=== PATIENT | male | born 1970 | race African-American/Black ===

== ENCOUNTER 2020-12-09 18:56 | Observation (INO) ==
[2020-12-09 20:14] LABS: Basophils # 0.1 10*3/uL (0.0-0.2); Basophils % 1.5 % (0.0-0.8); Eosinophils # 0.3 10*3/uL (0.0-0.87); Eosinophils % 8.4 % (0.00-10.9); Hematocrit 31.9 VOL% (42.0-52.0); Hemoglobin 9.8 GM/DL (14.0-18.0); Lymphocytes # 0.8 10*3/uL (1.4-4.0); Lymphocytes % 21.5 % (21.2-54.2); Mean Corpuscular HGB Conc 30.7 GM/DL (32-36); Mean Corpuscular Volume 94.7 FL (87-102); Mean Platelet Volume 12.1 FL (9.6-12.0); Monocytes % 10.5 % (1.7-12.7); Neutrophils % 58.1 % (38.7-73.9); Platelet Count 128 T/CUMM (130-400); Red Blood Count 3.37 MC/CUMM (3.8-5.5); Red Cell Distribution Width 17.2 % (9.3-17.3); White Blood Count 3.9 T/CUMM (4-12)
[2020-12-09 20:27] LABS: INR 1.2; Partial Thromboplastin Time 30.8 SECS (23.9-33.8)
[2020-12-09] MEDS ORDERED: LIDOCAINE 1%/EPI INJ 20 ML VIAL INFILTRAT STA (20:27)
[2020-12-09 20:34] LABS: Calcium 8.6 MG/DL (8.5-10.1); Osmolality,Calculated 286.3 MOS/KG (273-304); Potassium 3.4 MMOL/L (3.5-5.1)
[2020-12-09] MEDS ORDERED: ONDANSETRON 4 MG/2 ML VIAL IV PRN (21:44)
[2020-12-09] MEDS ORDERED: ACETAMINOPHEN 325 MG TABLET PO PRN (21:44)
[2020-12-10 00:05] LABS: Basophils # 0.1 10*3/uL (0.0-0.2); Basophils % 1.6 % (0.0-0.8); Eosinophils # 0.4 10*3/uL (0.0-0.87); Eosinophils % 8.2 % (0.00-10.9); Hematocrit 32.2 VOL% (42.0-52.0); Hemoglobin 9.8 GM/DL (14.0-18.0); Immature Granulocytes % 0.2 %; Immature Granulocytes Absolute 0.01 #; Lymphocytes % 22.4 % (21.2-54.2); Mean Corpuscular HGB Conc 30.4 GM/DL (32-36); Mean Corpuscular Volume 94.7 FL (87-102); Mean Platelet Volume 11.4 FL (9.6-12.0); Neutrophils % 57.6 % (38.7-73.9); Platelet Count 127 T/CUMM (130-400); Red Cell Distribution Width 17.2 % (9.3-17.3); White Blood Count 4.3 T/CUMM (4-12)
[2020-12-10 05:12] LABS: Hypochromasia 1+; Microcytosis 1+; Ovalocytes Slight; Platelet Estimate Adequate; Target Cells Slight
[2020-12-10 05:36] LABS: Basophils # 0.1 10*3/uL (0.0-0.2); Basophils % 1.3 % (0.0-0.8); Eosinophils # 0.4 10*3/uL (0.0-0.87); Eosinophils % 9.2 % (0.00-10.9); Hematocrit 30.2 VOL% (42.0-52.0); Hemoglobin 9.6 GM/DL (14.0-18.0); Immature Granulocytes % 0.3 %; Immature Granulocytes Absolute 0.01 #; Lymphocytes % 24.5 % (21.2-54.2); Mean Corpuscular HGB Conc 31.8 GM/DL (32-36); Mean Corpuscular Volume 92.4 FL (87-102); Mean Platelet Volume 11.5 FL (9.6-12.0); Monocytes % 10.7 % (1.7-12.7); Platelet Count 145 T/CUMM (130-400); Red Blood Count 3.27 MC/CUMM (3.8-5.5); White Blood Count 3.9 T/CUMM (4-12)
[2020-12-10 06:11] LABS: Calcium 8.8 MG/DL (8.5-10.1); Osmolality,Calculated 283.4 MOS/KG (273-304); Potassium 3.5 MMOL/L (3.5-5.1)
[2020-12-10] MEDS ORDERED: CLINDAMYCIN INJ 900 MG in PREMIX 1 EACH IV ONE (07:32)
[2020-12-10] MEDS ORDERED: fentaNYL 100 MCG/2 ML VIAL ONE (07:50)
[2020-12-10] MEDS ORDERED: MIDAZOLAM 2 MG/2 ML VIAL ONE (07:51)
[2020-12-10] MEDS ORDERED: SEVOFLURANE 1 UNIT/15 MINUTE INH ONE ×4 (07:55→09:26)
[2020-12-10] MEDS ORDERED: propofoL 200 MG/20 ML VIAL IV ONE (07:55)
[2020-12-10] MEDS ORDERED: LIDOCAINE 2% 5 ML VIAL ONE (07:55)
[2020-12-10] MEDS ORDERED: LIDOCAINE 1%/EPI INJ 20 ML VIAL ONE (08:05)
[2020-12-10] MEDS ORDERED: HEPARIN 5,000 UNIT/1 ML VIAL ONE (08:05)
[2020-12-10] MEDS ORDERED: BUPIVACAINE MPF 0.25% 30 ML VIAL ONE (08:05)
[2020-12-10] MEDS ORDERED: SODIUM CHLORIDE 0.9% 250 ML IV SCH (08:30)
[2020-12-10] MEDS ORDERED: PHENYLEPHRINE 1 MG/10 ML SYRINGE IV ONE (08:55)
[2020-12-10] MEDS ORDERED: ONDANSETRON 4 MG/2 ML VIAL ONE (09:10)
[2020-12-10] MEDS ORDERED: PHENYLEPHRINE DRIP 20 MG/250 ML PREMIX IV ONE (09:34)
[2020-12-10 15:42] VITALS: BP 151/85
== END 2020-12-10 17:35 | disposition home or self-care (01) ==
LOC: EDUNIT# → EDBD → N.ED 18:56 → N.EDINP 18:56 → N.3E 23:24
PROVIDERS: ADMIT Surgery; ATTEND Surgery

== ENCOUNTER 2021-02-10 15:08 | Inpatient (IN) ==
[2021-02-10 17:33] LABS: Basophils # 0.1 10*3/uL (0.0-0.2); Basophils % 0.8 % (0.0-0.8); Eosinophils # 0.2 10*3/uL (0.0-0.87); Eosinophils % 2.9 % (0.00-10.9); Hematocrit 20.9 VOL% (42.0-52.0); Immature Granulocytes % 0.3 %; Immature Granulocytes Absolute 0.02 #; Lymphocytes # 1.1 10*3/uL (1.4-4.0); Lymphocytes % 17.2 % (21.2-54.2); Mean Corpuscular HGB Conc 30.1 GM/DL (32-36); Mean Corpuscular Volume 82.9 FL (87-102); Mean Platelet Volume 11.3 FL (9.6-12.0); Neutrophils % 70.8 % (38.7-73.9); Platelet Count 238 T/CUMM (130-400); Red Blood Count 2.52 MC/CUMM (3.8-5.5); Red Cell Distribution Width 18.4 % (9.3-17.3); White Blood Count 6.2 T/CUMM (4-12)
[2021-02-10 17:35] LABS: Hemoglobin 6.3 GM/DL (14.0-18.0)
[2021-02-10 17:50] LABS: Alanine Aminotransferase < 6 U/L (16-61); Albumin 1.6 G/DL (3.4-5.0); Alkaline Phosphatase 40 U/L (45-117); Aspartate Amino Transferase 8 U/L (0-37); Blood Urea Nitrogen 20 MG/DL (7-18); Carbon Dioxide 29 MMOL/L (21-32); Estimated Glom Filtration Rate 21 ML/MIN; Glucose 86 MG/DL (74-106); Potassium 3.2 MMOL/L (3.5-5.1); Sodium 136 MMOL/L (136-145); Total Protein 8.9 G/DL (6.4-8.2)
[2021-02-10] MEDS ORDERED: hydrALAZINE 20 MG/1 ML VIAL IV PRN (20:57)
[2021-02-10] MEDS ORDERED: GLUCAGON 1 MG VIAL IM PRN (20:57)
[2021-02-10] MEDS ORDERED: MORPHINE 4 MG/1 ML VIAL IV PRN (20:57)
[2021-02-10] MEDS ORDERED: DEXTROSE 50% 25 GM/50 ML VIAL IV PRN (20:57)
[2021-02-10] MEDS ORDERED: ONDANSETRON 4 MG/2 ML VIAL IV PRN (20:57)
[2021-02-10] MEDS ORDERED: cefTRIAXone 1,000 MG VIAL IM ONE (21:01)
[2021-02-10] MEDS ORDERED: SODIUM CHLORIDE 0.9% 1,000 ML IV PRN (21:15)
[2021-02-10 22:51] LABS: HIV Antigen/Antibody Result Nonreactive (Nonreactive); Hepatitis B Core IgM Quant 0.07 Index; Hepatitis B Surface Ag Quant < 0.10 Index; Hepatitis B Surface Ag Result Non-Reactive (NonReactive); Hepatitis C Virus Ab Quant 0.16 Index; Hepatitis C Virus Ab Result Non-Reactive (NonReactive)
[2021-02-10] MEDS: INSULIN REGULAR 100 UNIT/ML SUBCUT SCH (23:18)
[2021-02-10] MEDS: DOXYCYCLINE HYCLATE INJ 100 MG in SODIUM CHLORIDE 0.9% 100 ML IV SCH (23:19)
[2021-02-11 04:18] LABS: Basophils # 0.1 10*3/uL (0.0-0.2); Eosinophils # 0.2 10*3/uL (0.0-0.87); Eosinophils % 3.8 % (0.00-10.9); Hematocrit 18.8 VOL% (42.0-52.0); Immature Granulocytes % 0.5 %; Immature Granulocytes Absolute 0.03 #; Lymphocytes # 1.4 10*3/uL (1.4-4.0); Lymphocytes % 22.5 % (21.2-54.2); Mean Corpuscular HGB Conc 29.3 GM/DL (32-36); Mean Corpuscular Volume 84.3 FL (87-102); Mean Platelet Volume 10.1 FL (9.6-12.0); Monocytes % 7.8 % (1.7-12.7); Neutrophils % 64.4 % (38.7-73.9); Platelet Count 322 T/CUMM (130-400); Red Blood Count 2.23 MC/CUMM (3.8-5.5); Red Cell Distribution Width 18.4 % (9.3-17.3); White Blood Count 6.3 T/CUMM (4-12)
[2021-02-11 04:20] LABS: Hemoglobin 5.5 GM/DL (14.0-18.0)
[2021-02-11 04:40] LABS: Alanine Aminotransferase < 6 U/L (16-61); Albumin 1.6 G/DL (3.4-5.0); Alkaline Phosphatase 40 U/L (45-117); Aspartate Amino Transferase 7 U/L (0-37); Blood Urea Nitrogen 21 MG/DL (7-18); Calcium 8.2 MG/DL (8.5-10.1); Carbon Dioxide 30 MMOL/L (21-32); Estimated Glom Filtration Rate 20 ML/MIN; Glucose 75 MG/DL (74-106); Osmolality,Calculated 271.1 MOS/KG (273-304); Potassium 3.1 MMOL/L (3.5-5.1); Sodium 135 MMOL/L (136-145)
[2021-02-11] MEDS: INSULIN REGULAR 100 UNIT/ML SUBCUT SCH ×4 (09:58→21:28)
[2021-02-11] MEDS: POTASSIUM CHLORIDE 8 MEQ CAPSULE PO SCH (10:00)
[2021-02-11] MEDS ORDERED: VANCOMYCIN INJ 1,000 MG in SODIUM CHLORIDE 0.9% 250 ML IV SCH (12:00)
[2021-02-11] MEDS ORDERED: VANCOMYCIN INJ 750 MG in SODIUM CHLORIDE 0.9% 250 ML IV PRN (12:20)
[2021-02-11] MEDS ORDERED: DEXTROSE 50% 25 GM/50 ML VIAL IV PRN (12:31)
[2021-02-11] MEDS ORDERED: GLUCAGON 1 MG VIAL IM PRN (12:31)
[2021-02-11] MEDS ORDERED: VANCOMYCIN INJ 2,500 MG in SODIUM CHLORIDE 0.9% 500 ML IV ONE (18:00)
[2021-02-11] MEDS: cefTRIAXone 1,000 MG in SODIUM CHLORIDE 0.9% 100 ML IV SCH (21:34)
[2021-02-11] MEDS: DOXYCYCLINE HYCLATE INJ 100 MG in SODIUM CHLORIDE 0.9% 100 ML IV SCH (22:39)
[2021-02-12 06:24] LABS: Alanine Aminotransferase < 6 U/L (16-61); Albumin 1.5 G/DL (3.4-5.0); Alkaline Phosphatase 53 U/L (45-117); Aspartate Amino Transferase 9 U/L (0-37); Blood Urea Nitrogen 21 MG/DL (7-18); Calcium 7.9 MG/DL (8.5-10.1); Carbon Dioxide 23 MMOL/L (21-32); Estimated Glom Filtration Rate 22 ML/MIN; Glucose 103 MG/DL (74-106); Osmolality,Calculated 270.2 MOS/KG (273-304); Potassium 3.6 MMOL/L (3.5-5.1); Sodium 134 MMOL/L (136-145); Total Protein 8.6 G/DL (6.4-8.2)
[2021-02-12 07:15] LABS: Basophils # 0.1 10*3/uL (0.0-0.2); Eosinophils # 0.2 10*3/uL (0.0-0.87); Eosinophils % 2.7 % (0.00-10.9); Hematocrit 28.3 VOL% (42.0-52.0); Hemoglobin 8.5 GM/DL (14.0-18.0); Immature Granulocytes % 0.6 %; Immature Granulocytes Absolute 0.04 #; Lymphocytes # 1.1 10*3/uL (1.4-4.0); Lymphocytes % 16.9 % (21.2-54.2); Mean Corpuscular Volume 87.6 FL (87-102); Mean Platelet Volume 11.2 FL (9.6-12.0); Monocytes % 8.2 % (1.7-12.7); Neutrophils % 70.6 % (38.7-73.9); Platelet Count 237 T/CUMM (130-400); Red Blood Count 3.23 MC/CUMM (3.8-5.5); Red Cell Distribution Width 17.8 % (9.3-17.3); White Blood Count 6.2 T/CUMM (4-12)
[2021-02-12] MEDS: INSULIN REGULAR 100 UNIT/ML SUBCUT SCH ×4 (09:07→20:09)
[2021-02-12] MEDS: POTASSIUM CHLORIDE 8 MEQ CAPSULE PO SCH (10:32)
[2021-02-12] MEDS: DOXYCYCLINE HYCLATE INJ 100 MG in SODIUM CHLORIDE 0.9% 100 ML IV SCH ×2 (12:04→21:42)
[2021-02-12] MEDS: cefTRIAXone 1,000 MG in SODIUM CHLORIDE 0.9% 100 ML IV SCH (20:57)
[2021-02-13 05:38] LABS: Basophils # 0.1 10*3/uL (0.0-0.2); Basophils % 0.8 % (0.0-0.8); Eosinophils # 0.4 10*3/uL (0.0-0.87); Eosinophils % 4.9 % (0.00-10.9); Hematocrit 22.6 VOL% (42.0-52.0); Immature Granulocytes % 0.4 %; Immature Granulocytes Absolute 0.03 #; Lymphocytes # 1.3 10*3/uL (1.4-4.0); Lymphocytes % 18.9 % (21.2-54.2); Mean Corpuscular Volume 83.1 FL (87-102); Mean Platelet Volume 10.2 FL (9.6-12.0); Monocytes % 8.3 % (1.7-12.7); Neutrophils % 66.7 % (38.7-73.9); Platelet Count 298 T/CUMM (130-400); Red Blood Count 2.72 MC/CUMM (3.8-5.5); Red Cell Distribution Width 17.6 % (9.3-17.3); White Blood Count 7.1 T/CUMM (4-12)
[2021-02-13 05:58] LABS: Alanine Aminotransferase < 6 U/L (16-61); Albumin 1.5 G/DL (3.4-5.0); Alkaline Phosphatase 42 U/L (45-117); Aspartate Amino Transferase 4 U/L (0-37); Blood Urea Nitrogen 26 MG/DL (7-18); Calcium 7.9 MG/DL (8.5-10.1); Carbon Dioxide 28 MMOL/L (21-32); Estimated Glom Filtration Rate 17 ML/MIN; Glucose 108 MG/DL (74-106); Osmolality,Calculated 278.8 MOS/KG (273-304); Potassium 2.9 MMOL/L (3.5-5.1); Sodium 137 MMOL/L (136-145); Total Protein 8.3 G/DL (6.4-8.2)
[2021-02-13] MEDS: INSULIN REGULAR 100 UNIT/ML SUBCUT SCH ×4 (08:02→21:36)
[2021-02-13] MEDS: DOXYCYCLINE HYCLATE INJ 100 MG in SODIUM CHLORIDE 0.9% 100 ML IV SCH ×2 (08:59→21:37)
[2021-02-13] MEDS: POTASSIUM CHLORIDE 8 MEQ CAPSULE PO SCH (08:59)
[2021-02-13] MEDS ORDERED: MORPHINE 4 MG/1 ML VIAL IV PRN (11:25)
[2021-02-13] MEDS ORDERED: LIDOCAINE/PRILOCAINE CREAM 5 GM TUBE TOP PRN (19:01)
[2021-02-13] MEDS: cefTRIAXone 1,000 MG in SODIUM CHLORIDE 0.9% 100 ML IV SCH (20:56)
[2021-02-14] MEDS: DOXYCYCLINE HYCLATE INJ 100 MG in SODIUM CHLORIDE 0.9% 100 ML IV SCH ×2 (08:29→21:49)
[2021-02-14] MEDS: INSULIN REGULAR 100 UNIT/ML SUBCUT SCH ×4 (08:32→21:07)
[2021-02-14] MEDS: POTASSIUM CHLORIDE 8 MEQ CAPSULE PO SCH (08:32)
[2021-02-14 08:38] LABS: Basophils # 0.1 10*3/uL (0.0-0.2); Basophils % 0.8 % (0.0-0.8); Eosinophils # 0.4 10*3/uL (0.0-0.87); Eosinophils % 5.6 % (0.00-10.9); Hematocrit 21.4 VOL% (42.0-52.0); Hemoglobin 6.6 GM/DL (14.0-18.0); Immature Granulocytes % 0.5 %; Immature Granulocytes Absolute 0.03 #; Lymphocytes # 1.4 10*3/uL (1.4-4.0); Lymphocytes % 20.6 % (21.2-54.2); Mean Corpuscular HGB Conc 30.8 GM/DL (32-36); Mean Corpuscular Volume 84.6 FL (87-102); Mean Platelet Volume 9.6 FL (9.6-12.0); Monocytes % 7.7 % (1.7-12.7); Neutrophils % 64.8 % (38.7-73.9); Platelet Count 282 T/CUMM (130-400); Red Blood Count 2.53 MC/CUMM (3.8-5.5); Red Cell Distribution Width 17.8 % (9.3-17.3); White Blood Count 6.7 T/CUMM (4-12)
[2021-02-14 08:48] LABS: INR 1.3
[2021-02-14 08:59] LABS: Calcium 7.9 MG/DL (8.5-10.1); Osmolality,Calculated 278.8 MOS/KG (273-304); Potassium 3.1 MMOL/L (3.5-5.1)
[2021-02-14] MEDS ORDERED: DIAZEPAM 5 MG TABLET PO ONE (13:56)
[2021-02-14] MEDS ORDERED: SODIUM CHLORIDE 0.45% 1,000 ML IV SCH (14:00)
[2021-02-14] MEDS: PANTOPRAZOLE 40 MG TABLET PO SCH (14:27)
[2021-02-14] MEDS ORDERED: VANCOMYCIN INJ 750 MG in SODIUM CHLORIDE 0.9% 250 ML IV ONE (17:00)
[2021-02-14] MEDS: cefTRIAXone 1,000 MG in SODIUM CHLORIDE 0.9% 100 ML IV SCH (21:16)
[2021-02-15 05:26] LABS: Basophils # 0.1 10*3/uL (0.0-0.2); Basophils % 0.9 % (0.0-0.8); Eosinophils # 0.4 10*3/uL (0.0-0.87); Eosinophils % 5.7 % (0.00-10.9); Hematocrit 26.2 VOL% (42.0-52.0); Hemoglobin 8.4 GM/DL (14.0-18.0); Immature Granulocytes % 0.5 %; Immature Granulocytes Absolute 0.03 #; Lymphocytes # 1.2 10*3/uL (1.4-4.0); Lymphocytes % 18.3 % (21.2-54.2); Mean Corpuscular HGB Conc 32.1 GM/DL (32-36); Mean Corpuscular Volume 84.2 FL (87-102); Mean Platelet Volume 10.3 FL (9.6-12.0); Monocytes % 8.1 % (1.7-12.7); Neutrophils % 66.5 % (38.7-73.9); Platelet Count 250 T/CUMM (130-400); Red Blood Count 3.11 MC/CUMM (3.8-5.5); Red Cell Distribution Width 17.2 % (9.3-17.3); White Blood Count 6.7 T/CUMM (4-12)
[2021-02-15 05:52] LABS: Osmolality,Calculated 281.7 MOS/KG (273-304); Potassium 3.1 MMOL/L (3.5-5.1)
[2021-02-15] MEDS: INSULIN REGULAR 100 UNIT/ML SUBCUT SCH ×4 (07:28→21:46)
[2021-02-15] MEDS: carvediloL 25 MG TABLET PO SCH ×2 (08:25→21:50)
[2021-02-15] MEDS: POTASSIUM CHLORIDE RIDER 10 MEQ/100 ML PREMIX IV SCH ×3 (08:25→10:22)
[2021-02-15] MEDS: SODIUM CHLORIDE 0.9% 1,000 ML IV SCH (08:25)
[2021-02-15] MEDS: POTASSIUM CHLORIDE 8 MEQ CAPSULE PO SCH (08:35)
[2021-02-15] MEDS: PANTOPRAZOLE 40 MG TABLET PO SCH (08:35)
[2021-02-15] MEDS: DOXYCYCLINE HYCLATE INJ 100 MG in SODIUM CHLORIDE 0.9% 100 ML IV SCH (11:22)
[2021-02-15] MEDS ORDERED: LIDOCAINE 2% 5 ML VIAL ONE (14:50)
[2021-02-15] MEDS ORDERED: propofoL 200 MG/20 ML VIAL IV ONE (14:50)
[2021-02-15] MEDS: cefTRIAXone 1,000 MG in SODIUM CHLORIDE 0.9% 100 ML IV SCH (21:55)
[2021-02-16 05:34] LABS: Basophils # 0.1 10*3/uL (0.0-0.2); Basophils % 1.3 % (0.0-0.8); Eosinophils # 0.3 10*3/uL (0.0-0.87); Eosinophils % 6.2 % (0.00-10.9); Hematocrit 24.2 VOL% (42.0-52.0); Hemoglobin 7.7 GM/DL (14.0-18.0); Immature Granulocytes % 0.4 %; Immature Granulocytes Absolute 0.02 #; Lymphocytes # 1.1 10*3/uL (1.4-4.0); Lymphocytes % 20.5 % (21.2-54.2); Mean Corpuscular HGB Conc 31.8 GM/DL (32-36); Mean Corpuscular Volume 84.6 FL (87-102); Mean Platelet Volume 9.5 FL (9.6-12.0); Monocytes % 7.9 % (1.7-12.7); Neutrophils % 63.7 % (38.7-73.9); Platelet Count 230 T/CUMM (130-400); Red Blood Count 2.86 MC/CUMM (3.8-5.5); Red Cell Distribution Width 17.6 % (9.3-17.3); White Blood Count 5.3 T/CUMM (4-12)
[2021-02-16 05:56] LABS: Alanine Aminotransferase < 6 U/L (16-61); Albumin 1.5 G/DL (3.4-5.0); Alkaline Phosphatase 45 U/L (45-117); Aspartate Amino Transferase 6 U/L (0-37); Blood Urea Nitrogen 32 MG/DL (7-18); Calcium 8.1 MG/DL (8.5-10.1); Carbon Dioxide 26 MMOL/L (21-32); Estimated Glom Filtration Rate 14 ML/MIN; Glucose 104 MG/DL (74-106); Osmolality,Calculated 279.8 MOS/KG (273-304); Potassium 3.3 MMOL/L (3.5-5.1); Sodium 137 MMOL/L (136-145)
[2021-02-16] MEDS: INSULIN REGULAR 100 UNIT/ML SUBCUT SCH ×4 (08:25→21:40)
[2021-02-16] MEDS: carvediloL 25 MG TABLET PO SCH ×2 (09:16→21:40)
[2021-02-16] MEDS: PANTOPRAZOLE 40 MG TABLET PO SCH (09:16)
[2021-02-16] MEDS: POTASSIUM CHLORIDE 8 MEQ CAPSULE PO SCH (09:16)
[2021-02-16] MEDS: SODIUM CHLORIDE 0.9% 1,000 ML IV SCH (12:40)
[2021-02-16] MEDS ORDERED: VANCOMYCIN INJ 750 MG in SODIUM CHLORIDE 0.9% 250 ML IV ONE (17:00)
[2021-02-16] MEDS: cefTRIAXone 1,000 MG in SODIUM CHLORIDE 0.9% 100 ML IV SCH (21:40)
[2021-02-17 05:32] LABS: Basophils # 0.1 10*3/uL (0.0-0.2); Eosinophils # 0.3 10*3/uL (0.0-0.87); Eosinophils % 5.7 % (0.00-10.9); Hematocrit 25.2 VOL% (42.0-52.0); Immature Granulocytes % 0.5 %; Immature Granulocytes Absolute 0.03 #; Lymphocytes # 1.3 10*3/uL (1.4-4.0); Lymphocytes % 22.7 % (21.2-54.2); Mean Corpuscular HGB Conc 31.7 GM/DL (32-36); Mean Corpuscular Volume 86.6 FL (87-102); Mean Platelet Volume 10.9 FL (9.6-12.0); Monocytes % 8.8 % (1.7-12.7); Neutrophils % 61.3 % (38.7-73.9); Platelet Count 234 T/CUMM (130-400); Red Blood Count 2.91 MC/CUMM (3.8-5.5); Red Cell Distribution Width 18.1 % (9.3-17.3); White Blood Count 5.8 T/CUMM (4-12)
[2021-02-17 05:43] LABS: Osmolality,Calculated 277.8 MOS/KG (273-304); Potassium 3.6 MMOL/L (3.5-5.1)
[2021-02-17] MEDS: POTASSIUM CHLORIDE 8 MEQ CAPSULE PO SCH (09:29)
[2021-02-17] MEDS: PANTOPRAZOLE 40 MG TABLET PO SCH (09:29)
[2021-02-17] MEDS: carvediloL 25 MG TABLET PO SCH ×2 (09:29→21:33)
[2021-02-17] MEDS: SODIUM CHLORIDE 0.9% 1,000 ML IV SCH (10:23)
[2021-02-17] MEDS: INSULIN REGULAR 100 UNIT/ML SUBCUT SCH ×4 (10:23→20:31)
[2021-02-17] MEDS: cefTRIAXone 1,000 MG in SODIUM CHLORIDE 0.9% 100 ML IV SCH (21:34)
[2021-02-18 06:30] LABS: Calcium 8.1 MG/DL (8.5-10.1); Osmolality,Calculated 278.8 MOS/KG (273-304); Potassium 3.9 MMOL/L (3.5-5.1)
[2021-02-18 08:01] LABS: Basophils # 0.1 10*3/uL (0.0-0.2); Eosinophils # 0.4 10*3/uL (0.0-0.87); Eosinophils % 5.3 % (0.00-10.9); Hematocrit 25.2 VOL% (42.0-52.0); Hemoglobin 7.8 GM/DL (14.0-18.0); Immature Granulocytes % 0.6 %; Immature Granulocytes Absolute 0.04 #; Lymphocytes # 1.7 10*3/uL (1.4-4.0); Lymphocytes % 24.6 % (21.2-54.2); Mean Corpuscular Volume 85.7 FL (87-102); Mean Platelet Volume 9.7 FL (9.6-12.0); Monocytes % 7.2 % (1.7-12.7); Neutrophils % 61.3 % (38.7-73.9); Platelet Count 257 T/CUMM (130-400); Red Blood Count 2.94 MC/CUMM (3.8-5.5); Red Cell Distribution Width 18.1 % (9.3-17.3); White Blood Count 6.8 T/CUMM (4-12)
[2021-02-18] MEDS: SODIUM CHLORIDE 0.9% 1,000 ML IV SCH (08:03)
[2021-02-18] MEDS: INSULIN REGULAR 100 UNIT/ML SUBCUT SCH ×3 (08:03→16:21)
[2021-02-18 08:09] VITALS: BP 133/81
[2021-02-18] MEDS: PANTOPRAZOLE 40 MG TABLET PO SCH (08:37)
[2021-02-18] MEDS: POTASSIUM CHLORIDE 8 MEQ CAPSULE PO SCH (08:37)
[2021-02-18] MEDS: carvediloL 25 MG TABLET PO SCH (08:37)
[2021-02-18] MEDS ORDERED: VANCOMYCIN INJ 750 MG in SODIUM CHLORIDE 0.9% 250 ML IV ONE (17:00)
== END 2021-02-18 17:10 | disposition home or self-care (01) | DRG 673 ==
LOC: N.ED 15:08 → SUATTDRO 20:56 → N.EDINP 20:56 → N.3E 02-11 08:17
PROVIDERS: ADMIT Internal Medicine; ATTEND Hospitalist

== ENCOUNTER 2021-03-18 14:06 | Inpatient (IN) ==
[2021-03-18] MEDS ORDERED: ACETAMINOPHEN 500 MG TABLET PO STA (16:00)
[2021-03-18] MEDS ORDERED: SODIUM CHLORIDE 0.9% 500 ML IV STA (16:04)
[2021-03-18 16:15] LABS: Basophils # 0.1 10*3/uL (0.0-0.2); Basophils % 1.2 % (0.0-0.8); Eosinophils # 0.1 10*3/uL (0.0-0.87); Eosinophils % 1.4 % (0.00-10.9); Hematocrit 24.9 VOL% (42.0-52.0); Hemoglobin 7.6 GM/DL (14.0-18.0); Immature Granulocytes % 0.5 %; Immature Granulocytes Absolute 0.02 #; Lymphocytes # 0.7 10*3/uL (1.4-4.0); Lymphocytes % 16.7 % (21.2-54.2); Mean Corpuscular HGB Conc 30.5 GM/DL (32-36); Mean Corpuscular Volume 89.6 FL (87-102); Mean Platelet Volume 9.8 FL (9.6-12.0); Monocytes % 7.5 % (1.7-12.7); Neutrophils % 72.7 % (38.7-73.9); Platelet Count 156 T/CUMM (130-400); Red Blood Count 2.78 MC/CUMM (3.8-5.5); Red Cell Distribution Width 18.6 % (9.3-17.3); White Blood Count 4.1 T/CUMM (4-12)
[2021-03-18] MEDS ORDERED: metroNIDAZOLE INJ 500 MG/100 ML PREMIX IV STA (16:25)
[2021-03-18 16:32] LABS: INR 1.3; PT Patient Result 14.7 SECS (10.5-12.0)
[2021-03-18 16:36] LABS: Alanine Aminotransferase < 6 U/L (16-61); Albumin 2.2 G/DL (3.4-5.0); Alkaline Phosphatase 59 U/L (45-117); Aspartate Amino Transferase 18 U/L (0-37); Blood Urea Nitrogen 13 MG/DL (7-18); Calcium 7.9 MG/DL (8.5-10.1); Carbon Dioxide 32 MMOL/L (21-32); Estimated Glom Filtration Rate 33 ML/MIN; Glucose 83 MG/DL (74-106); Osmolality,Calculated 268.1 MOS/KG (273-304); Potassium 3.2 MMOL/L (3.5-5.1); Sodium 135 MMOL/L (136-145)
[2021-03-18 17:30] LABS: Sedimentation Rate-Westergren 127 MM/HR (0-15)
[2021-03-18 17:33] LABS: Eosinophils 1 % (0-10); Lymphocytes 14 % (20-55); Segmented Neutrophils 80 % (50-85); Total Cells Counted 100
[2021-03-18 17:34] LABS: Hypochromasia 4+; Microcytosis 4+
[2021-03-18] MEDS ORDERED: ACETAMINOPHEN 325 MG TABLET PO PRN (18:03)
[2021-03-18] MEDS ORDERED: GLUCAGON 1 MG VIAL IM PRN ×2 (18:03)
[2021-03-18] MEDS ORDERED: DEXTROSE 50% 25 GM/50 ML VIAL IV PRN ×2 (18:03)
[2021-03-18] MEDS ORDERED: ZALEPLON 5 MG CAPSULE PO PRN (18:28)
[2021-03-18 18:45] LABS: Bilirubin,Urine Negative (Negative); Blood, Urine Moderate mg/dL (Negative); Glucose,Urine (UA) Negative (Negative); Ketones,Urine Negative (Negative); Mucus,Urine Occasional /LPF (Occasional); Nitrite,Urine Negative (Negative); Protein,Urine >=500 MG/DL; RBC,Urine 9 /HPF (0-4); Squamous Epithelial Cell,Urine Occasional /HPF (0-10); Urine Appearance CLOUDY (Clear); Urine Color Amber (Yellow); Urine Specific Gravity 1.025 (1.001-1.035); Urine Urobilinogen < 2.0 EU/DL (0.2-1.0)
[2021-03-18] MEDS ORDERED: ALBUTEROL/IPRATROPIUM 3 ML NEB RESP TX SCH (19:00)
[2021-03-18] MEDS ORDERED: VANCOMYCIN INJ 1,000 MG in SODIUM CHLORIDE 0.9% 250 ML IV PRN (19:34)
[2021-03-18] MEDS ORDERED: MELATONIN 3 MG TABLET PO PRN (19:43)
[2021-03-18] MEDS ORDERED: hydrALAZINE 20 MG/1 ML VIAL IV PRN (19:46)
[2021-03-18 20:03] LABS: Ferritin 1879.2 ng/ml (26-388)
[2021-03-18] MEDS: INSULIN LISPRO 100 UNIT/ML SUBCUT SCH (20:45)
[2021-03-18] MEDS: carvediloL 25 MG TABLET PO SCH (20:48)
[2021-03-18] MEDS: ASCORBIC ACID 500 MG TABLET PO SCH (20:48)
[2021-03-18] MEDS: FAMOTIDINE 20 MG TABLET PO SCH (20:48)
[2021-03-18] MEDS: ALBUTEROL INHALER 18 GM INH SCH (21:01)
[2021-03-18] MEDS: LEVOFLOXACIN INJ 750 MG/150 ML PREMIX IV SCH (21:02)
[2021-03-19] MEDS: ONDANSETRON 4 MG/2 ML VIAL IV PRN ×2 (00:39→20:59)
[2021-03-19] MEDS: ALBUTEROL INHALER 18 GM INH SCH ×4 (02:23→20:53)
[2021-03-19 05:57] LABS: Basophils % 0.6 % (0.0-0.8); Eosinophils % 0.3 % (0.00-10.9); Hematocrit 22.5 VOL% (42.0-52.0); Hemoglobin 6.9 GM/DL (14.0-18.0); Immature Granulocytes % 0.6 %; Immature Granulocytes Absolute 0.02 #; Lymphocytes # 0.7 10*3/uL (1.4-4.0); Lymphocytes % 19.4 % (21.2-54.2); Mean Corpuscular HGB Conc 30.7 GM/DL (32-36); Mean Platelet Volume 11.1 FL (9.6-12.0); Monocytes % 6.6 % (1.7-12.7); Neutrophils % 72.5 % (38.7-73.9); Platelet Count 152 T/CUMM (130-400); Red Cell Distribution Width 18.5 % (9.3-17.3); White Blood Count 3.5 T/CUMM (4-12)
[2021-03-19 06:19] LABS: Lymphocytes 10 % (20-55); Platelet Estimate Normal; Segmented Neutrophils 88 % (50-85); Total Cells Counted 100
[2021-03-19 06:20] LABS: Hypochromasia 2+; Ovalocytes Slight; Target Cells Few
[2021-03-19 06:32] LABS: Ferritin 1915.2 ng/ml (26-388); Osmolality,Calculated 275.7 MOS/KG (273-304); Potassium 3.5 MMOL/L (3.5-5.1)
[2021-03-19] MEDS: INSULIN LISPRO 100 UNIT/ML SUBCUT SCH ×4 (07:24→20:55)
[2021-03-19] MEDS ORDERED: SODIUM CHLORIDE 0.9% 1,000 ML IV PRN (08:05)
[2021-03-19] MEDS: FAMOTIDINE 20 MG TABLET PO SCH ×2 (08:56→20:52)
[2021-03-19] MEDS: ASCORBIC ACID 500 MG TABLET PO SCH ×2 (08:56→20:52)
[2021-03-19] MEDS: DEXAMETHASONE 4 MG/1 ML VIAL IV SCH (08:56)
[2021-03-19] MEDS: CETIRIZINE 10 MG TABLET PO SCH (08:57)
[2021-03-19] MEDS: SERTRALINE 25 MG TABLET PO SCH (08:57)
[2021-03-19] MEDS: carvediloL 25 MG TABLET PO SCH ×2 (08:57→20:52)
[2021-03-19] MEDS: ZINC GLUCONATE 50 MG TABLET PO SCH (08:57)
[2021-03-19] MEDS: CHOLECALCIFEROL 1,000 UNIT TABLET PO SCH (08:57)
[2021-03-20 05:52] LABS: Basophils % 0.3 % (0.0-0.8); Hematocrit 26.6 VOL% (42.0-52.0); Hemoglobin 8.2 GM/DL (14.0-18.0); Lymphocytes # 0.9 10*3/uL (1.4-4.0); Lymphocytes % 29.1 % (21.2-54.2); Mean Corpuscular HGB Conc 30.8 GM/DL (32-36); Mean Corpuscular Volume 88.7 FL (87-102); Mean Platelet Volume 11.2 FL (9.6-12.0); Monocytes % 8.5 % (1.7-12.7); Neutrophils % 61.2 % (38.7-73.9); Platelet Count 181 T/CUMM (130-400); Red Cell Distribution Width 18.1 % (9.3-17.3); White Blood Count 3.2 T/CUMM (4-12)
[2021-03-20 06:12] LABS: Calcium 8.3 MG/DL (8.5-10.1); Osmolality,Calculated 277.1 MOS/KG (273-304); Potassium 3.9 MMOL/L (3.5-5.1)
[2021-03-20] MEDS: INSULIN LISPRO 100 UNIT/ML SUBCUT SCH ×4 (08:43→21:06)
[2021-03-20] MEDS: ALBUTEROL INHALER 18 GM INH SCH ×4 (08:44→21:06)
[2021-03-20] MEDS: FAMOTIDINE 20 MG TABLET PO SCH ×2 (08:47→21:06)
[2021-03-20] MEDS: SERTRALINE 25 MG TABLET PO SCH (08:47)
[2021-03-20] MEDS: ZINC GLUCONATE 50 MG TABLET PO SCH (08:47)
[2021-03-20] MEDS: CETIRIZINE 10 MG TABLET PO SCH (08:47)
[2021-03-20] MEDS: ASCORBIC ACID 500 MG TABLET PO SCH ×2 (08:48→21:05)
[2021-03-20] MEDS: CHOLECALCIFEROL 1,000 UNIT TABLET PO SCH (08:48)
[2021-03-20] MEDS: DEXAMETHASONE 4 MG/1 ML VIAL IV SCH (08:48)
[2021-03-20] MEDS: carvediloL 25 MG TABLET PO SCH ×2 (08:49→21:06)
[2021-03-20] MEDS: LEVOFLOXACIN INJ 750 MG/150 ML PREMIX IV SCH (17:59)
[2021-03-21] MEDS ORDERED: PROMETHAZINE 25 MG TABLET PO PRN (03:04)
[2021-03-21 06:11] LABS: Hematocrit 30.3 VOL% (42.0-52.0); Hemoglobin 9.7 GM/DL (14.0-18.0); Lymphocytes % 15.9 % (21.2-54.2); Mean Corpuscular Volume 87.1 FL (87-102); Mean Platelet Volume 10.7 FL (9.6-12.0); Monocytes % 5.4 % (1.7-12.7); Neutrophils % 77.7 % (38.7-73.9); Platelet Count 211 T/CUMM (130-400); Red Blood Count 3.48 MC/CUMM (3.8-5.5); Red Cell Distribution Width 18.3 % (9.3-17.3); White Blood Count 6.3 T/CUMM (4-12)
[2021-03-21 06:27] LABS: Calcium 8.1 MG/DL (8.5-10.1); Osmolality,Calculated 285.8 MOS/KG (273-304)
[2021-03-21 06:35] LABS: Lymphocytes 9 % (20-55); Platelet Estimate Normal; Segmented Neutrophils 85 % (50-85); Total Cells Counted 100
[2021-03-21] MEDS: CHOLECALCIFEROL 1,000 UNIT TABLET PO SCH (08:43)
[2021-03-21] MEDS: ASCORBIC ACID 500 MG TABLET PO SCH (08:43)
[2021-03-21] MEDS: SERTRALINE 25 MG TABLET PO SCH (08:43)
[2021-03-21] MEDS: FAMOTIDINE 20 MG TABLET PO SCH ×2 (08:43→20:32)
[2021-03-21] MEDS: CETIRIZINE 10 MG TABLET PO SCH (08:43)
[2021-03-21] MEDS: ZINC GLUCONATE 50 MG TABLET PO SCH (08:43)
[2021-03-21] MEDS: INSULIN LISPRO 100 UNIT/ML SUBCUT SCH ×4 (08:44→20:33)
[2021-03-21] MEDS: DEXAMETHASONE 4 MG/1 ML VIAL IV SCH (08:46)
[2021-03-21] MEDS: ALBUTEROL INHALER 18 GM INH SCH ×4 (08:46→20:32)
[2021-03-21] MEDS ORDERED: hydrALAZINE 25 MG TABLET PO SCH (10:29)
[2021-03-21] MEDS ORDERED: ISOSORBIDE MONONITRATE 30 MG TABLET PO SCH (15:00)
[2021-03-21] MEDS ORDERED: ZINC OXIDE PASTE 113 GM TUBE TOP SCH (15:00)
[2021-03-21] MEDS: carvediloL 25 MG TABLET PO SCH ×2 (15:02→20:32)
[2021-03-21] MEDS ORDERED: VANCOMYCIN INJ 1,000 MG in SODIUM CHLORIDE 0.9% 250 ML IV ONE (17:30)
[2021-03-22] MEDS: ALBUTEROL INHALER 18 GM INH SCH ×2 (03:15→09:13)
[2021-03-22 05:38] LABS: Basophils % 0.4 % (0.0-0.8); Eosinophils % 0.5 % (0.00-10.9); Hematocrit 26.9 VOL% (42.0-52.0); Hemoglobin 8.4 GM/DL (14.0-18.0); Immature Granulocytes % 0.7 %; Immature Granulocytes Absolute 0.04 #; Lymphocytes # 1.6 10*3/uL (1.4-4.0); Mean Corpuscular HGB Conc 31.2 GM/DL (32-36); Mean Corpuscular Volume 89.1 FL (87-102); Mean Platelet Volume 11.7 FL (9.6-12.0); Monocytes % 5.1 % (1.7-12.7); NRBC # 0.02 10*3/uL; Neutrophils % 64.3 % (38.7-73.9); Platelet Count 230 T/CUMM (130-400); Red Blood Count 3.02 MC/CUMM (3.8-5.5); Red Cell Distribution Width 18.6 % (9.3-17.3); White Blood Count 5.7 T/CUMM (4-12)
[2021-03-22 06:02] LABS: Osmolality,Calculated 286.3 MOS/KG (273-304); Potassium 3.4 MMOL/L (3.5-5.1)
[2021-03-22 06:09] LABS: Risk Ratio 4.44; VLDL Cholesterol 27.4 MG/DL
[2021-03-22 06:19] LABS: Hypochromasia 3+; Platelet Estimate Normal; Target Cells 1+
[2021-03-22] MEDS: INSULIN LISPRO 100 UNIT/ML SUBCUT SCH ×4 (07:18→21:19)
[2021-03-22] MEDS ORDERED: ASPIRIN EC 81 MG TABLET PO SCH (09:00)
[2021-03-22] MEDS ORDERED: LEVOFLOXACIN 750 MG TABLET PO SCH (09:00)
[2021-03-22] MEDS: SERTRALINE 25 MG TABLET PO SCH (09:13)
[2021-03-22] MEDS: CHOLECALCIFEROL 1,000 UNIT TABLET PO SCH (09:13)
[2021-03-22] MEDS: FAMOTIDINE 20 MG TABLET PO SCH ×2 (09:13→20:39)
[2021-03-22] MEDS: carvediloL 25 MG TABLET PO SCH ×2 (09:13→20:39)
[2021-03-22] MEDS ORDERED: POTASSIUM CHLORIDE 20 MEQ TABLET PO ONE (11:00)
[2021-03-22] MEDS: ALBUTEROL 2.5 MG/3 ML NEB RESP TX SCH ×2 (14:00→20:42)
[2021-03-22] MEDS ORDERED: LOSARTAN 25 MG TABLET PO SCH (15:00)
[2021-03-23 01:10] VITALS: BP 145/73
== END 2021-03-23 00:20 | disposition home health service (06) | DRG 193 ==
LOC: EDBD → EDUNIT# → N.EDINP 14:06 → N.ED 14:06 → N.5E 18:43 → N.CC 19:48 → N.5E 03-19 16:34
PROVIDERS: ADMIT Internal Medicine; ATTEND Internal Medicine

== ENCOUNTER 2022-04-22 22:30 | Inpatient (IN) ==
[2022-04-22] MEDS ORDERED: DEXTROSE 50% 25 GM/50 ML SYRINGE IV ONE (22:40)
[2022-04-22] MEDS ORDERED: SODIUM CHLORIDE 0.9% 1,000 ML IV STA ×3 (22:47→23:26)
[2022-04-22] MEDS ORDERED: DEXTROSE 50% 25 GM/50 ML VIAL IV STA (22:50)
[2022-04-22 22:54] LABS: Eosinophils % 2.6 % (0.00-10.9); Hematocrit 35.1 VOL% (42.0-52.0); Hemoglobin 10.8 GM/DL (14.0-18.0); Immature Granulocytes % 1.3 %; Immature Granulocytes Absolute 0.01 #; Lymphocytes # 0.3 10*3/uL (1.4-4.0); Lymphocytes % 34.2 % (21.2-54.2); Mean Corpuscular HGB Conc 30.8 GM/DL (32-36); Mean Corpuscular Volume 93.4 FL (87-102); Monocytes % 3.9 % (1.7-12.7); Platelet Count 67 T/CUMM (130-400); Red Blood Count 3.76 MC/CUMM (3.8-5.5); Red Cell Distribution Width 17.9 % (9.3-17.3)
[2022-04-22] MEDS ORDERED: DEXTROSE 50% 25 GM/50 ML SYRINGE IV STA (22:55)
[2022-04-22 23:00] LABS: White Blood Count 0.8 T/CUMM (4-12)
[2022-04-22 23:08] LABS: Alanine Aminotransferase 12 U/L (16-61); Albumin 1.9 G/DL (3.4-5.0); Alkaline Phosphatase 45 U/L (45-117); Aspartate Amino Transferase 19 U/L (0-37); Blood Urea Nitrogen 30 MG/DL (7-18); Carbon Dioxide 21 MMOL/L (21-32); Chloride 107 MMOL/L (98-107); Glucose 63 MG/DL (74-106); Osmolality,Calculated 282.4 MOS/KG (273-304); Potassium 3.4 MMOL/L (3.5-5.1); Sodium 140 MMOL/L (136-145); Total Protein 6.3 G/DL (6.4-8.2)
[2022-04-22] MEDS ORDERED: PIPERACILLIN/TAZOBACTAM 3,375 MG in SODIUM CHLORIDE 0.9% 100 ML IV STA (23:09)
[2022-04-22] MEDS ORDERED: ACETAMINOPHEN 650 MG SUPP RECTAL STA (23:27)
[2022-04-22] MEDS ORDERED: VANCOMYCIN INJ 1,000 MG in SODIUM CHLORIDE 0.9% 250 ML IV STA (23:28)
[2022-04-22 23:32] LABS: Arterial Base Excess iSTAT -9 MMOL/L (-2.5-2.5); Arterial Bicarbonate iSTAT 15.1 MMOL/L (20-26); Arterial O2 Saturation iSTAT 97 % (95-100); Arterial PCO2 iSTAT 27 MM HG (35-48); Arterial PO2 iSTAT 97 MM HG (80-95); Arterial Total CO2 iSTAT 16 MMO/L (23-27); Arterial pH iSTAT 7.349 (7.35-7.45)
[2022-04-22 23:50] LABS: Eosinophils 4 % (0-10); Hypochromia Slight; Lymphocytes 38 % (20-55); Platelet Estimate Decreased; Target Cells Slight; Total Cells Counted 100
[2022-04-22] MEDS ORDERED: ALBUTEROL 2.5 MG/3 ML NEB RESP TX PRN (23:51)
[2022-04-23] MEDS ORDERED: NOREPINEPHRINE 4 MG/4 ML VIAL IV ONE ×3 (00:27→07:14)
[2022-04-23] MEDS: NOREPINEPHRINE 8 MG in SODIUM CHLORIDE 0.9% 242 ML IV PRN ×2 (00:32→06:30)
[2022-04-23] MEDS ORDERED: VANCOMYCIN INJ 1,000 MG in SODIUM CHLORIDE 0.9% 250 ML IV SCH (01:00)
[2022-04-23] MEDS ORDERED: ROCURONIUM 100 MG/10 ML VIAL IV ONE (01:43)
[2022-04-23] MEDS ORDERED: ETOMIDATE 20 MG/10 ML VIAL IV ONE (01:43)
[2022-04-23] MEDS ORDERED: MIDAZOLAM 100 MG in SODIUM CHLORIDE 0.9% 80 ML IV PRN (01:52)
[2022-04-23] MEDS: ACETAMINOPHEN 325 MG/10.15 ML UDCUP PO PRN (01:53)
[2022-04-23] MEDS ORDERED: HYDROCORTISONE 100 MG VIAL IM ONE (02:00)
[2022-04-23] MEDS ORDERED: VANCOMYCIN INJ 750 MG in SODIUM CHLORIDE 0.9% 250 ML IV PRN (02:00)
[2022-04-23] MEDS ORDERED: VANCOMYCIN INJ 2,000 MG in SODIUM CHLORIDE 0.9% 500 ML IV ONE (02:00)
[2022-04-23] MEDS ORDERED: VANCOMYCIN INJ 2,500 MG in SODIUM CHLORIDE 0.9% 500 ML IV ONE (02:00)
[2022-04-23] MEDS: PHENYLEPHRINE DRIP 40 MG/250 ML PREMIX IV PRN ×2 (02:13→03:59)
[2022-04-23] MEDS ORDERED: DEXTROSE 10% 250 ML IV ONE ×2 (02:22→03:53)
[2022-04-23] MEDS ORDERED: IBUPROFEN 100 MG/5 ML UDCUP PO ONE (02:30)
[2022-04-23] MEDS ORDERED: SODIUM BICARBONATE 50 MEQ/50 ML VIAL IV ONE ×5 (02:32→17:15)
[2022-04-23 02:41] LABS: Basophils % 0.8 % (0.0-0.8); Eosinophils % 2.4 % (0.00-10.9); Hematocrit 35.9 VOL% (42.0-52.0); Hemoglobin 10.9 GM/DL (14.0-18.0); Immature Granulocytes % 8.8 %; Immature Granulocytes Absolute 0.11 #; Lymphocytes # 0.4 10*3/uL (1.4-4.0); Lymphocytes % 35.2 % (21.2-54.2); Mean Corpuscular HGB Conc 30.4 GM/DL (32-36); Mean Corpuscular Volume 94.7 FL (87-102); Mean Platelet Volume 12.9 FL (9.6-12.0); Monocytes # 0.1 10*3/uL (0.11-0.8); Monocytes % 5.6 % (1.7-12.7); Neutrophils % 47.2 % (38.7-73.9); Platelet Count 85 T/CUMM (130-400); Red Blood Count 3.79 MC/CUMM (3.8-5.5); Red Cell Distribution Width 17.8 % (9.3-17.3); White Blood Count 1.3 T/CUMM (4-12)
[2022-04-23 02:47] LABS: Arterial Base Excess iSTAT -4 MMOL/L (-2.5-2.5); Arterial Bicarbonate iSTAT 26.7 MMOL/L (20-26); Arterial O2 Saturation iSTAT 100 % (95-100); Arterial PCO2 iSTAT 78 MM HG (35-48); Arterial PO2 iSTAT 439 MM HG (80-95); Arterial Total CO2 iSTAT 29 MMO/L (23-27); Arterial pH iSTAT 7.143 (7.35-7.45)
[2022-04-23 03:15] LABS: Albumin 1.9 G/DL (3.4-5.0); Bilirubin,Total 0.7 MG/DL (0.20-1.00); Calcium 7.9 MG/DL (8.5-10.1); Potassium 3.2 MMOL/L (3.5-5.1); Total Protein 6.6 G/DL (6.4-8.2)
[2022-04-23 03:49] LABS: Eosinophils 4 % (0-10); Lymphocytes 44 % (20-55); Nucleated Red Blood Cells 3 /100 WBC (0-5); Platelet Estimate Decreased; Total Cells Counted 100
[2022-04-23 03:53] LABS: Target Cells Slight
[2022-04-23 03:54] LABS: Macrocytosis Slight
[2022-04-23 03:56] LABS: Burr Cells 1+
[2022-04-23] MEDS ORDERED: PHENYLEPHRINE IV PRN (04:00)
[2022-04-23] MEDS: NOREPINEPHRINE 16 MG in SODIUM CHLORIDE 0.9% 234 ML IV PRN ×6 (04:10→22:49)
[2022-04-23] MEDS ORDERED: PHENYLEPHRINE INJ 160 MG in SODIUM CHLORIDE 0.9% 234 ML IV SCH (04:30)
[2022-04-23] MEDS ORDERED: MORPHINE 2 MG/1 ML SYRINGE IV PRN (04:45)
[2022-04-23] MEDS ORDERED: DIGOXIN 0.5 MG/2 ML AMP IV ONE ×2 (05:00→05:15)
[2022-04-23] MEDS ORDERED: MIDAZOLAM 2 MG/2 ML VIAL IV ONE (05:00)
[2022-04-23] MEDS: MEROPENEM 500 MG in SODIUM CHLORIDE 0.9% 100 ML IV SCH ×4 (05:15→22:48)
[2022-04-23] MEDS: PHENYLEPHRINE INJ 160 MG in SODIUM CHLORIDE 0.9% 234 ML IV SCH ×4 (05:25→22:47)
[2022-04-23] MEDS: SODIUM BICARB INJ 100 MEQ in DEXTROSE 5% 1,000 ML IV SCH ×2 (05:25→16:26)
[2022-04-23 05:47] LABS: ABG Base Excess -13.8 MMOL/L (-2.5-2.5); ABG HCO3 13.9 MMOL/L (20-26); ABG Oxygen Saturation 98.2 % (95-100); ABG PCO2 43.1 MM HG (35-48); ABG TCO2 13.9 MMOL/L (23-27)
[2022-04-23 05:54] LABS: ABG PH 7.147 (7.35-7.45)
[2022-04-23] MEDS: HYDROCORTISONE 100 MG VIAL IV SCH ×3 (06:25→17:05)
[2022-04-23] MEDS: POTASSIUM CHLORIDE RIDER 20 MEQ/100 ML PREMIX IV SCH ×2 (06:43→07:20)
[2022-04-23] MEDS: metroNIDAZOLE INJ 500 MG/100 ML PREMIX IV SCH ×3 (06:43→22:20)
[2022-04-23] MEDS ORDERED: ALBUMIN 25% 25 GM/100 ML VIAL IV ONE (07:12)
[2022-04-23] MEDS ORDERED: LACTATED RINGERS 500 ML IV ONE ×4 (07:20→09:01)
[2022-04-23 07:56] LABS: ABG Base Excess -14.6 MMOL/L (-2.5-2.5); ABG HCO3 13.3 MMOL/L (20-26); ABG Oxygen Saturation 97.3 % (95-100); ABG PCO2 29.5 MM HG (35-48); ABG PH 7.221 (7.35-7.45); ABG TCO2 11.1 MMOL/L (23-27)
[2022-04-23] MEDS ORDERED: PIPERACILLIN/TAZOBACTAM 3,375 MG in SODIUM CHLORIDE 0.9% 100 ML IV SCH (08:00)
[2022-04-23 08:15] LABS: Arterial Bicarbonate iSTAT 11.4 MMOL/L (20-26); Arterial pH iSTAT 7.2 (7.35-7.45)
[2022-04-23] MEDS ORDERED: DEXTROSE 10% 500 ML BAG IV ONE (08:32)
[2022-04-23 08:48] LABS: Arterial Bicarbonate iSTAT 10.3 MMOL/L (20-26); Arterial pH iSTAT 7.163 (7.35-7.45)
[2022-04-23] MEDS: ENOXAPARIN 30 MG/0.3 ML SYRINGE SUBCUT SCH (08:59)
[2022-04-23] MEDS ORDERED: DEXTROSE 5% 1,000 ML IV SCH (09:30)
[2022-04-23] MEDS ORDERED: VASOPRESSIN 100 UNITS in SODIUM CHLORIDE 0.9% 95 ML IV PRN (09:57)
[2022-04-23] MEDS: DEXTROSE 5% NACL 0.9% 1,000 ML IV SCH ×3 (11:11→22:23)
[2022-04-23] MEDS ORDERED: DEXTROSE 50% 25 GM/50 ML SYRINGE IV ONE (12:58)
[2022-04-23] MEDS ORDERED: SODIUM CHLORIDE 0.9% 1,000 ML IV ONE (15:07)
[2022-04-23] MEDS ORDERED: DEXTROSE 10% 250 ML BAG IV PRN (15:16)
[2022-04-23] MEDS: DEXTROSE 50% 25 GM/50 ML SYRINGE IV PRN (15:25)
[2022-04-24] MEDS: NOREPINEPHRINE 16 MG in SODIUM CHLORIDE 0.9% 234 ML IV PRN ×8 (01:30→23:54)
[2022-04-24] MEDS: HYDROCORTISONE 100 MG VIAL IV SCH ×4 (02:20→17:41)
[2022-04-24] MEDS: PHENYLEPHRINE INJ 160 MG in SODIUM CHLORIDE 0.9% 234 ML IV SCH ×5 (04:08→22:21)
[2022-04-24 04:21] LABS: ABG Base Excess -20.8 MMOL/L (-2.5-2.5); ABG HCO3 9.5 MMOL/L (20-26); ABG Oxygen Saturation 99.2 % (95-100); ABG PCO2 25.4 MM HG (35-48); ABG TCO2 7.5 MMOL/L (23-27)
[2022-04-24] MEDS: SODIUM BICARB INJ 100 MEQ in DEXTROSE 5% 1,000 ML IV SCH ×3 (04:24→16:14)
[2022-04-24 04:26] LABS: ABG PH 7.103 (7.35-7.45)
[2022-04-24 04:40] LABS: Calcium 6.4 MG/DL (8.5-10.1); Osmolality,Calculated 289.5 MOS/KG (273-304); Phosphorous 6.2 MG/DL (2.5-4.9); Potassium 5.3 MMOL/L (3.5-5.1)
[2022-04-24 04:54] LABS: Bilirubin,Direct 0.66 MG/DL (0.0-0.20); Bilirubin,Indirect 0.3 MG/DL (0.0-1.0); Total Protein 3.6 G/DL (6.4-8.2)
[2022-04-24 04:55] LABS: Albumin 1.1 G/DL (3.4-5.0); Bilirubin,Total 0.9 MG/DL (0.20-1.00); Calcium 6.8 MG/DL (8.5-10.1); Osmolality,Calculated 288.7 MOS/KG (273-304); Potassium 5.2 MMOL/L (3.5-5.1); Total Protein 3.5 G/DL (6.4-8.2)
[2022-04-24 05:00] LABS: Basophils % 0.8 % (0.0-0.8); Eosinophils # 0.1 10*3/uL (0.0-0.87); Eosinophils % 1.8 % (0.00-10.9); Hematocrit 35.6 VOL% (42.0-52.0); Hemoglobin 10.5 GM/DL (14.0-18.0); Immature Granulocytes % 2.1 %; Immature Granulocytes Absolute 0.08 #; Lymphocytes # 0.3 10*3/uL (1.4-4.0); Lymphocytes % 7.1 % (21.2-54.2); Mean Corpuscular HGB Conc 29.5 GM/DL (32-36); Monocytes # 0.1 10*3/uL (0.11-0.8); Monocytes % 3.7 % (1.7-12.7); NRBC # 0.17 10*3/uL; Neutrophils % 84.5 % (38.7-73.9); Red Blood Count 3.67 MC/CUMM (3.8-5.5); Red Cell Distribution Width 18.2 % (9.3-17.3); White Blood Count 3.8 T/CUMM (4-12)
[2022-04-24 05:08] LABS: Platelet Count 4 T/CUMM (130-400)
[2022-04-24] MEDS: MEROPENEM 500 MG in SODIUM CHLORIDE 0.9% 100 ML IV SCH (05:32)
[2022-04-24 05:39] LABS: Band Neutrophils 6 % (0-10); Burr Cells Slight; Eosinophils 2 % (0-10); Lymphocytes 13 % (20-55); Myelocytes 1 %; Nucleated Red Blood Cells 8 /100 WBC (0-5); Platelet Estimate Decreased; Total Cells Counted 100
[2022-04-24 05:40] LABS: Hypochromia Slight
[2022-04-24] MEDS: metroNIDAZOLE INJ 500 MG/100 ML PREMIX IV SCH ×3 (06:13→22:30)
[2022-04-24] MEDS: DEXTROSE 5% NACL 0.9% 1,000 ML IV SCH (08:30)
[2022-04-24] MEDS ORDERED: SODIUM BICARBONATE 50 MEQ/50 ML VIAL IV ONE (09:32)
[2022-04-24] MEDS ORDERED: SODIUM CHLORIDE 0.9% 1,000 ML IV PRN (09:36)
[2022-04-24] MEDS: ENOXAPARIN 30 MG/0.3 ML SYRINGE SUBCUT SCH (09:53)
[2022-04-24 10:19] LABS: PT Patient Result 90.3 SECS (10.1-12.1)
[2022-04-24 10:20] LABS: Basophils % 0.5 % (0.0-0.8); Eosinophils % 0.8 % (0.00-10.9); Immature Granulocytes % 8.2 %; Immature Granulocytes Absolute 0.31 #; Lymphocytes # 0.3 10*3/uL (1.4-4.0); Lymphocytes % 7.9 % (21.2-54.2); Mean Corpuscular HGB Conc 28.9 GM/DL (32-36); Mean Corpuscular Volume 100.3 FL (87-102); Monocytes # 0.2 10*3/uL (0.11-0.8); NRBC # 0.22 10*3/uL; Neutrophils % 78.6 % (38.7-73.9); Red Blood Count 3.49 MC/CUMM (3.8-5.5); Red Cell Distribution Width 18.6 % (9.3-17.3); White Blood Count 3.8 T/CUMM (4-12)
[2022-04-24 10:23] LABS: Hemoglobin 10.1 GM/DL (14.0-18.0); Platelet Count 3 T/CUMM (130-400)
[2022-04-24 10:28] LABS: Band Neutrophils 8 % (0-10); Eosinophils 1 % (0-10); Lymphocytes 21 % (20-55); Nucleated Red Blood Cells 9 /100 WBC (0-5); Platelet Estimate Decreased; Total Cells Counted 100
[2022-04-24 10:29] LABS: Burr Cells Slight; Hypochromia Slight; Macrocytosis Slight
[2022-04-24 10:30] LABS: INR 9.6; Partial Thromboplastin Time 186.3 SECS (23.7-32.9)
[2022-04-24] MEDS ORDERED: ALBUMIN 25% 25 GM/100 ML VIAL IV ONE (11:43)
[2022-04-24] MEDS: SODIUM BICARB INJ 150 MEQ in DEXTROSE 5% 1,000 ML IV SCH (14:30)
[2022-04-24] MEDS ORDERED: MEROPENEM 500 MG in SODIUM CHLORIDE 0.9% 100 ML IV SCH (17:00)
[2022-04-24] MEDS ORDERED: DEXTROSE 10% 250 ML IV ONE (18:50)
[2022-04-24] MEDS: DEXTROSE 10% 500 ML IV SCH (19:00)
[2022-04-24] MEDS: ALBUMIN 25% 12.5 GM/50 ML VIAL IV SCH (20:20)
[2022-04-24] MEDS ORDERED: LORazepam 2 MG/1 ML VIAL ONE (20:49)
[2022-04-24] MEDS ORDERED: LORazepam 2 MG/1 ML VIAL IV ONE (21:00)
[2022-04-24] MEDS: DEXTROSE 50% 25 GM/50 ML SYRINGE IV PRN (22:37)
[2022-04-25 00:41] VITALS: BP 81/35
[2022-04-25] MEDS: SODIUM BICARB INJ 150 MEQ in DEXTROSE 5% 1,000 ML IV SCH ×2 (01:42→02:01)
[2022-04-25] MEDS: HYDROCORTISONE 100 MG VIAL IV SCH ×3 (01:42→12:58)
[2022-04-25] MEDS: ACETAMINOPHEN 325 MG/10.15 ML UDCUP PO PRN (02:18)
[2022-04-25] MEDS: NOREPINEPHRINE 16 MG in SODIUM CHLORIDE 0.9% 234 ML IV PRN ×4 (02:36→10:45)
[2022-04-25] MEDS: DEXTROSE 50% 25 GM/50 ML SYRINGE IV PRN (03:40)
[2022-04-25] MEDS: PHENYLEPHRINE INJ 160 MG in SODIUM CHLORIDE 0.9% 234 ML IV SCH ×2 (03:41→06:23)
[2022-04-25 03:45] LABS: Basophils % 0.3 % (0.0-0.8); Eosinophils % 0.6 % (0.00-10.9); Hematocrit 29.4 VOL% (42.0-52.0); Hemoglobin 8.7 GM/DL (14.0-18.0); Immature Granulocytes % 0.3 %; Immature Granulocytes Absolute 0.02 #; Lymphocytes # 0.2 10*3/uL (1.4-4.0); Lymphocytes % 3.4 % (21.2-54.2); Mean Corpuscular HGB Conc 29.6 GM/DL (32-36); Mean Corpuscular Volume 96.1 FL (87-102); Monocytes # 0.5 10*3/uL (0.11-0.8); Monocytes % 7.6 % (1.7-12.7); NRBC # 0.35 10*3/uL; Neutrophils % 87.8 % (38.7-73.9); Red Blood Count 3.06 MC/CUMM (3.8-5.5); Red Cell Distribution Width 18.4 % (9.3-17.3); White Blood Count 6.5 T/CUMM (4-12)
[2022-04-25 03:46] LABS: ABG Base Excess -18.3 MMOL/L (-2.5-2.5); ABG HCO3 10.7 MMOL/L (20-26); ABG Oxygen Saturation 98.1 % (95-100); ABG PCO2 27.1 MM HG (35-48)
[2022-04-25 03:48] LABS: ABG PH 7.151 (7.35-7.45)
[2022-04-25 03:49] LABS: Platelet Count 9 T/CUMM (130-400)
[2022-04-25] MEDS: ALBUMIN 25% 12.5 GM/50 ML VIAL IV SCH (03:51)
[2022-04-25 04:02] LABS: Phosphorous 6.1 MG/DL (2.5-4.9)
[2022-04-25 04:08] LABS: Band Neutrophils 8 % (0-10); Hypochromia Slight; Lymphocytes 4 % (20-55); Nucleated Red Blood Cells 9 /100 WBC (0-5); Platelet Estimate Decreased; Total Cells Counted 100
[2022-04-25 04:09] LABS: Burr Cells Few; Macrocytosis Slight
[2022-04-25 04:19] LABS: Albumin 1.3 G/DL (3.4-5.0); Bilirubin,Total 2.2 MG/DL (0.20-1.00); Calcium 6.8 MG/DL (8.5-10.1); Osmolality,Calculated 291.1 MOS/KG (273-304); Potassium 4.6 MMOL/L (3.5-5.1); Total Protein 3.5 G/DL (6.4-8.2)
[2022-04-25] MEDS: DEXTROSE 10% 500 ML IV SCH ×2 (05:03→05:08)
[2022-04-25] MEDS ORDERED: LORazepam 2 MG/1 ML VIAL IV PRN (05:11)
[2022-04-25] MEDS: metroNIDAZOLE INJ 500 MG/100 ML PREMIX IV SCH (06:00)
== END 2022-04-25 14:01 | disposition expired | DRG 871 ==
LOC: N.ED 22:30 → N.ICU 23:51 → SUATTDRO 23:51 → N.CC 04-23 01:06
PROVIDERS: ADMIT Internal Medicine; ATTEND Internal Medicine